=== PATIENT | female | born 1965 | race Caucasian/White ===

== ENCOUNTER → 2017-08-30 | Outpatient (CLI) | payer OTHER ==
[~2017-08-30] MED LIST: CYAN500T13 PO; MULT-506 PO; PANT40TA PO; TAMO20TA9 PO; [UNRECOGNIZED DRUG - OTHER]
--- NOTE | 2017-08-30 11:10 | DIAGNOSTIC IMAGING REPORT ---
CHEST 2 VIEWS ROUTINE CLINICAL HISTORY: Acute bronchitis with bronchospasm. COMPARISON STUDY: No previous studies for comparison. FINDINGS: The patient is status post left mastectomy. No pneumothorax or pleural effusion is noted. There is mild cardiomegaly without evidence for pulmonary edema. There is no consolidation. Apparent asymmetric right lung opacity is likely due to the left mastectomy. IMPRESSION: No acute cardiopulmonary findings. Electronically signed by: Lars Lopes M.D. 08/30/2017 11:08 AM Dictated Date/Time: 08/30/2017 11:07 AM
== END | disposition home or self-care (01) ==
LOC: C.RADBC 10:25
PROVIDERS: ATTEND Nurse Practitioner Adult Health
DX: J20.9 Acute bronchitis, unspecified (principal)